=== PATIENT | male | born 2000 | race African-American/Black ===

== ENCOUNTER 2021-06-12 12:16 | Emergency (ER) | payer MEDICAID ==
[~2021-06-12] VITALS: Ht 180.3 cm; Wt 61.0 kg
[2021-06-12 12:25] VITALS: BP 141/95
== END 2021-06-12 17:38 | disposition left against medical advice (07) ==
LOC: ER 12:16
DX: Z53.21 Procedure and treatment not carried out due to patient leaving prior to being seen by health care provider (principal)